=== PATIENT | female | born 1960 ===

== ENCOUNTER 2020-11-17 13:05 | Emergency (ER) | payer BC ==
[2020-11-17] MEDS ORDERED: Sodium Chloride 0.9% 10 ML Syringe FLUSH PRN (13:34)
[2020-11-17] MEDS ORDERED: Sodium Chloride 0.9% 1,000 ML IV ONE (13:36)
[2020-11-17 14:01] LABS: ANION GAP 8.5 meq/L (7-15); CHLORIDE,CL 105 mmol/L (98-107); SODIUM,NA 141 mmol/L (136-145)
[2020-11-17] MEDS ORDERED: Doxycycline Monohydrate 100 MG Cap PO ONE (14:28)
[2020-11-17] MEDS ORDERED: cefTRIAXone 2 GM in Sodium Chloride 0.9% 100 ML IV ONE (14:28)
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
== END 2020-11-17 15:30 | disposition home or self-care (01) ==
LOC: LL.ED 13:05
DX: R55 Syncope and collapse (principal); J18.9 Pneumonia, unspecified organism; E03.9 Hypothyroidism, unspecified; Z79.899 Other long term (current) drug therapy; Z20.822 Contact with and (suspected) exposure to COVID-19
CPT/HCPCS: 36415; 71045; 80053; 83735; 83880; 84484; 85025; 86140; 87426; 93005; 96365; 99285; A9270; J0696; J7030; 93010; 99284